=== PATIENT | female | born 1965 | race Caucasian/White ===

== ENCOUNTER 2023-08-03 23:29 | Emergency (ER) | payer BC ==
[2023-08-03 23:33] VITALS: BP 141/93; PULSE 79; RESP 19; TEMP 98.8; BMI 22.5
[2023-08-03] MEDS ORDERED: CEPHALEXIN 250 MG/5 ML ORAL SUSPENSION PO ONE (23:49)
[2023-08-03] MEDS ORDERED: CEPHALEXIN MONOHYDRATE 500 MG CAPSULE (UD) ONE (23:55)
== END 2023-08-04 00:09 | disposition home or self-care (01) ==
LOC: FER 23:29
DX: L03.317 Cellulitis of buttock (principal)
CPT/HCPCS: 99283-25